=== PATIENT | male | born 1960 | race Caucasian/White ===

== ENCOUNTER 2018-04-17 08:56 | Emergency (ER) | payer OTHER ==
--- NOTE | 2018-04-17 09:16 | EDM.PDOC ---
ED HPI GENERAL MEDICAL PROBLEM - General Chief Complaint: Lower Extremity Injury/Pain Stated Complaint: RT LEG HURTS Time Seen by Provider: 04/17/18 09:14 - History of Present Illness INITIAL COMMENTS - FREE TEXT/NARRATIVE: HISTORY AND PHYSICAL: History of present illness: Patient's 58-year-old white male presents with concern of chronic right leg swelling slightly worse recently he states he said mild chronic edema of his right lower extremity but there is a family history of DVT this prompted visit today to the DVT he denies pain he denies trauma he denies other risk factors for DVT pulmonary M was on or prior episodes. Review of systems: As per history of present illness and below otherwise all systems reviewed and negative. Past medical history: As per history of present illness and as reviewed below otherwise noncontributory. Surgical history: As per history of present illness and as reviewed below otherwise noncontributory. Social history: No reported history of drug or alcohol abuse. Family history: As per history of present illness and as reviewed below otherwise noncontributory. Physical exam: HEENT: Atraumatic, normocephalic, pupils reactive, negative for conjunctival pallor or scleral icterus, mucous membranes moist, throat clear, neck supple, nontender, trachea midline. Lungs: Clear to auscultation, breath sounds equal bilaterally, chest nontender. Heart: S1S2, regular, negative for clicks, rubs, or JVD. Abdomen: Soft, nondistended, nontender. Negative for masses or hepatosplenomegaly. Negative for costovertebral tenderness. Pelvis: Stable nontender. Genitourinary: Deferred. Rectal: Deferred. Extremities: Patient is 1+ edema lower extremity there is no cords pain CMS neurovascular exam is unremarkable Neuro: Awake, alert, oriented. Cranial nerves II through XII unremarkable. Cerebellum unremarkable. Motor and sensory unremarkable throughout. Exam nonfocal. Diagnostics: Venous Doppler right lower extremity Therapeutics: To be determined Impression: #1 peripheral edema right lower extremity chronic/intermittent etiology to be determined Definitive disposition and diagnosis as appropriate pending reevaluation and review of above. right lower leg Pain Score (Numeric/FACES): 4 - Related Data Allergies Allergy/AdvReac Type Severity Reaction Status Date / Time Penicillins Allergy Edema Verified 04/17/18 09:03 Home Meds: Home Meds Fish Oil/Pitts-3 Fatty Acids [Fish Oil] 04/17/18 [History] Past Medical History - Infectious Disease History Infectious Disease History: Reports: Chicken Pox, Hepatitis C - Past Surgical History HEENT Surgical History: Reports: Tonsillectomy GI Surgical History: Reports: Cholecystectomy, Other (See Below) Other GI Surgeries/Procedures: liver biopsy Social & Family History - Family History Family Medical History: Noncontributory - Tobacco Use Smoking Status *Q: Never Smoker - Caffeine Use Caffeine Use: Reports: Energy Drinks - Recreational Drug Use Recreational Drug Use: No Review of Systems - Review of Systems Review Of Systems: ROS reveals no pertinent complaints other than HPI. ED EXAM, GENERAL - Physical Exam Exam: See Below (See dictation) Course - Vital Signs Last Recorded V/S: Last Vital Signs Temp 36.2 C 04/17/18 09:03 Pulse 64 04/17/18 09:03 Resp 18 04/17/18 09:03 BP 149/98 H 04/17/18 09:03 Pulse Ox 96 04/17/18 09:03 Departure - Departure Time of Disposition: 10:46 Disposition: Home, Self-Care 01 Condition: Good Clinical Impression: Peripheral edema - Discharge Information Referrals: PCP,None [Primary Care Provider] - Forms: ED Department Discharge Additional Instructions: The following information is given to patients seen in the emergency department who are being discharged to home. This information is to outline your options for follow-up care. We provide all patients seen in our emergency department with a follow-up referral. The need for follow-up, as well as the timing and circumstances, are variable depending upon the specifics of your emergency department visit. If you don't have a primary care physician on staff, we will provide you with a referral. We always advise you to contact your personal physician following an emergency department visit to inform them of the circumstance of the visit and for follow-up with them and/or the need for any referrals to a consulting specialist. The emergency department will also refer you to a specialist when appropriate. This referral assures that you have the opportunity for followup care with a specialist. All of these measure are taken in an effort to provide you with optimal care, which includes your followup. Under all circumstances we always encourage you to contact your private physician who remains a resource for coordinating your care. When calling for followup care, please make the office aware that this follow-up is from your recent emergency room visit. If for any reason you are refused follow-up, please contact the [facility] emergency department at and asked to speak to the emergency department charge nurse. Follow-up primary medical doctor as needed as discussed return as needed as discussed
--- NOTE | 2018-04-17 09:57 | US ---
ULTRASOUND EXAMINATION OF the right lower extremity WITH DOPPLER HISTORY: Pain FINDINGS: Examination of the right leg was performed from the groin to the calf region. All visualized segment s including common femoral, proximal greater saphenous, superficial femoral, popliteal and calf veins appear patent with good compressibility and augmentation. There is no evidence of deep vein thrombo sis. IMPRESSION: No evidence of a DVT.
--- NOTE | 2018-04-17 09:58 | CR ---
EXAMINATION: Right ankle HISTORY: Pain COMPARISON: None TECHNIQUE: 3 views FINDINGS/IMPRESSION: There is no acute osseous abnormality, dislocation, or fracture. Ankle mortise a nd talar dome appear intact. Mild soft tissue swelling noted overlying the medial malleolus. Otherwis e minimal degenerative changes present.
== END 2018-04-17 10:55 | disposition home or self-care (01) ==
LOC: MW.ED 08:56
DX: R60.0 Localized edema (principal); Z88.0 Allergy status to penicillin
CPT/HCPCS: 73610-26-RT; 73610-RT; 93971-26-RT; 93971-RT; 99284-25

== ENCOUNTER 2018-09-02 13:29 | Emergency (ER) | payer OTHER ==
[2018-09-02] MEDS ORDERED: Sodium Chloride 0.9% 1,000 ML IV ONE (13:47)
[2018-09-02] MEDS ORDERED: Sodium Chloride 0.9% 2.5 ML Syringe FLUSH PRN (13:47)
[2018-09-02] MEDS ORDERED: Sodium Chloride 0.9% 10 ML Syringe FLUSH PRN (13:47)
[2018-09-02] MEDS ORDERED: Ketorolac 30 MG/ML SDV IVPUSH ONE (13:47)
[2018-09-02 14:20] LABS: CHLORIDE,CL 108 mmol/L (98-107); SODIUM,NA 143 mmol/L (136-148)
--- NOTE | 2018-09-02 15:41 | EDM.PDOC ---
ED HPI GENERAL MEDICAL PROBLEM - General Chief Complaint: Flank Pain Stated Complaint: LOWER BACK PAIN Time Seen by Provider: 09/02/18 13:31 Source of Information: Reports: Patient History Limitations: Reports: No Limitations - History of Present Illness INITIAL COMMENTS - FREE TEXT/NARRATIVE: History of present illness: []Patient complains of one hour of sudden sharp left flank pain that is making him sweat. He is nauseated but has not vomited. Patient recently underwent a liver stent placement for hepatic cyst that was optimizing his bile duct in [facility] at the [facility]. Patient does not have any right upper quadrant pain or fevers at this time Review of systems: As per history of present illness and below otherwise all systems reviewed and negative. Past medical history: As per history of present illness and as reviewed below otherwise noncontributory. Surgical history: As per history of present illness and as reviewed below otherwise noncontributory. Social history: No reported history of drug or alcohol abuse. Family history: As per history of present illness and as reviewed below otherwise noncontributory. Physical exam: General: Well developed, well nourished in NAD HEENT: Atraumatic, normocephalic, pupils reactive, negative for conjunctival pallor or scleral icterus, mucous membranes moist, throat clear, neck supple, nontender, trachea midline. Lungs: Clear to auscultation, breath sounds equal bilaterally, chest nontender. Heart: S1S2, regular, negative for clicks, rubs, or JVD. Abdomen: Soft, nondistended, nontender. Negative for masses or hepatosplenomegaly. Negative for costovertebral tenderness. Pelvis: Stable nontender. Genitourinary: Deferred. Rectal: Deferred. Extremities: Atraumatic, negative for cords or calf pain. Neurovascular unremarkable. Neuro: Awake, alert, oriented. Cranial nerves II through XII unremarkable. Cerebellum unremarkable. Motor and sensory unremarkable throughout. Exam nonfocal. Skin:warm and dry Diagnostics: CBC, chemistry, UA, CT abdomen and pelvis showing a 1.3 cm left UPJ stone causing watery hydronephrosis Therapeutics: IV hydration, Toradol. Patient did not want narcotics. ED Course: Improved with pain meds and IV hydration Impression: Left UPJ kidney stone moderate hydronephrosis Prescriptions: Diclofenac, Flomax Plan: Increase fluids take meds as directed return if symptoms worsen or change call your doctors at the [facility] [place] and let them know you were in the emergency room and have workup forwarded. Definitive disposition and diagnosis as appropriate pending reevaluation and review of above. lower left back Pain Score (Numeric/FACES): 4 - Related Data Allergies Allergy/AdvReac Type Severity Reaction Status Date / Time Penicillins Allergy Edema Verified 04/17/18 09:03 Home Meds: Home Meds . [No Known Home Meds] 09/02/18 [History] Past Medical History - Infectious Disease History Infectious Disease History: Reports: Chicken Pox, Hepatitis C - Past Surgical History HEENT Surgical History: Reports: Tonsillectomy GI Surgical History: Reports: Cholecystectomy, Other (See Below) Other GI Surgeries/Procedures: liver biopsy/stent placed Social & Family History - Family History Family Medical History: Noncontributory - Tobacco Use Smoking Status *Q: Never Smoker Second Hand Smoke Exposure: No - Caffeine Use Caffeine Use: Reports: Energy Drinks - Recreational Drug Use Recreational Drug Use: No ED ROS GENERAL - Review of Systems Review Of Systems: ROS reveals no pertinent complaints other than HPI. ED EXAM, GI/ABD - Physical Exam Exam: See Below (The history of present illness) Course - Vital Signs Last Recorded V/S: Last Vital Signs Temp 96.2 F 09/02/18 13:41 Pulse 52 L 09/02/18 13:41 Resp 17 09/02/18 13:41 BP 124/88 09/02/18 13:41 Pulse Ox 96 09/02/18 13:41 - Orders/Labs/Meds Orders: Active Orders 24 hr Category Date Time Status Abdomen Pelvis w wo Cont [CT] Stat Exams 09/02/18 14:24 Taken Sodium Chloride 0.9% [Saline Flush] Med 09/02/18 13:47 Active 10 ml FLUSH ASDIRECTED PRN Sodium Chloride 0.9% [Saline Flush] Med 09/02/18 13:47 Active 2.5 ml FLUSH ASDIRECTED PRN Saline Lock Insert [OM.PC] Stat Oth 09/02/18 13:47 Ordered Medication Orders Sodium Chloride (Saline Flush) 10 ml FLUSH ASDIRECTED PRN PRN Reason: Keep Vein Open Last Admin: 09/02/18 14:03 Dose: 10 ml Sodium Chloride (Saline Flush) 2.5 ml FLUSH ASDIRECTED PRN PRN Reason: Keep Vein Open Last Admin: 09/02/18 14:03 Dose: 2.5 ml Labs: Laboratory Tests 09/02/18 09/02/18 09/02/18 Range/Units 13:55 13:55 15:00 WBC 9.00 (4.0-11.0) K/uL RBC 4.18 L (4.50-5.90) M/uL Hgb 13.7 (13.0-17.0) g/dL Hct 39.3 (38.0-50.0) % MCV 94.0 (80.0-98.0) fL MCH 32.8 H (27.0-32.0) pg MCHC 34.9 (31.0-37.0) g/dL RDW Std Deviation 44.8 (28.0-62.0) fl RDW Coeff of Vasu 13 (11.0-15.0) % Plt Count 210 (150-400) K/uL MPV 10.90 (7.40-12.00) fL Neut % (Auto) 41.1 L (48.0-80.0) % Lymph % (Auto) 46.4 H (16.0-40.0) % [facility] % (Auto) 8.8 (0.0-15.0) % Eos % (Auto) 3.3 (0.0-7.0) % Baso % (Auto) 0.4 (0.0-1.5) % Neut # (Auto) 3.7 (1.4-5.7) K/uL Lymph # (Auto) 4.2 H (0.6-2.4) K/uL [facility] # (Auto) 0.8 (0.0-0.8) K/uL Eos # (Auto) 0.3 (0.0-0.7) K/uL Baso # (Auto) 0.0 (0.0-0.1) K/uL Nucleated RBC % 0.0 /100WBC Nucleated RBCs # 0 K/uL Sodium 143 (136-148) mmol/L Potassium 3.7 (3.5-5.1) mmol/L Chloride 108 H (98-107) mmol/L Carbon Dioxide 26.5 (21.0-32.0) mmol/L BUN 15 (7.0-18.0) mg/dL Creatinine 1.0 (0.8-1.3) mg/dL Est Cr Clr Drug Dosing 83.14 mL/min Estimated GFR (MDRD) > 60.0 ml/min Glucose 132 H (74-106) mg/dL Calcium 8.5 (8.5-10.1) mg/dL Total Bilirubin 1.1 H (0.2-1.0) mg/dL AST 47 H (15-37) IU/L ALT 69 H (14-63) IU/L Alkaline Phosphatase 193 H (46-116) U/L Total Protein 7.0 (6.4-8.2) g/dL Albumin 3.0 L (3.4-5.0) g/dL Globulin 4.0 H (2.0-3.5) g/dL Albumin/Globulin Ratio 0.8 L (1.3-2.8) Urine Color YELLOW Urine Appearance CLEAR Urine pH 6.0 (5.0-8.0) Ur Specific [place] 1.020 (1.001-1.035) Urine Protein NEGATIVE (NEGATIVE) mg/dL Urine Glucose (UA) NEGATIVE (NEGATIVE) mg/dL Urine Ketones NEGATIVE (NEGATIVE) mg/dL Urine Occult Blood LARGE H (NEGATIVE) Urine Nitrite NEGATIVE (NEGATIVE) Urine Bilirubin NEGATIVE (NEGATIVE) Urine Urobilinogen 0.2 (<2.0) EU/dL Ur Leukocyte Esterase NEGATIVE (NEGATIVE) Urine RBC 50-65 (0-2/HPF) Urine WBC 0-3 (0-5/HPF) Ur Epithelial Cells RARE (NONE-FEW) Urine Bacteria RARE (NEGATIVE) Meds: Medications Generic Name Dose Route Start Last Admin Trade Name Freq PRN Reason Stop Dose Admin Sodium Chloride 10 ml 09/02/18 13:47 09/02/18 14:03 Saline Flush FLUSH 10 ml ASDIRECTED PRN Administration Keep Vein Open Sodium Chloride 2.5 ml 09/02/18 13:47 09/02/18 14:03 Saline Flush FLUSH 2.5 ml ASDIRECTED PRN Administration Keep Vein Open Discontinued Medications Generic Name Dose Route Start Last Admin Trade Name Freq PRN Reason Stop Dose Admin Sodium Chloride 1,000 mls @ 999 mls/hr 09/02/18 13:47 09/02/18 14:03 Normal Saline IV 09/02/18 14:47 999 mls/hr .Bolus ONE Administration Ketorolac Tromethamine 30 mg 09/02/18 13:47 09/02/18 14:03 Toradol IVPUSH 09/02/18 13:48 30 mg ONETIME ONE Administration Departure - Departure Time of Disposition: 15:41 Disposition: Home, Self-Care 01 Condition: Good Clinical Impression: Left ureteral stone - Discharge Information *PRESCRIPTION DRUG MONITORING PROGRAM REVIEWED*: No *COPY OF PRESCRIPTION DRUG MONITORING REPORT IN PATIENT BALAJI: No Referrals: PCP,None [Primary Care Provider] - Additional Instructions: The following information is given to patients seen in the emergency department who are being discharged to home. This information is to outline your options for follow-up care. We provide all patients seen in our emergency department with a follow-up referral. The need for follow-up, as well as the timing and circumstances, are variable depending upon the specifics of your emergency department visit. If you don't have a primary care physician on staff, we will provide you with a referral. We always advise you to contact your personal physician following an emergency department visit to inform them of the circumstance of the visit and for follow-up with them and/or the need for any referrals to a consulting specialist. The emergency department will also refer you to a specialist when appropriate. This referral assures that you have the opportunity for follow-up care with a specialist. All of these measure are taken in an effort to provide you with optimal care, which includes your follow-up. Under all circumstances we always encourage you to contact your private physician who remains a resource for coordinating your care. When calling for follow-up care, please make the office aware that this follow-up is from your recent emergency room visit. If for any reason you are refused follow-up, please contact the [facility] Emergency Department at and asked to speak to the emergency department charge nurse. Flomax, diclofenac for pain follow-up with primary care. Let your doctors in [place] no about her ER visit today and have your records forwarded. Follow-up with urology if symptoms continue or worsen. [facility] [address] [place] [id number] [facility] [address] [place] [address] - My Orders Last 24 Hours: My Active Orders 09/02/18 13:47 Sodium Chloride 0.9% [Saline Flush] 10 ml FLUSH ASDIRECTED PRN Sodium Chloride 0.9% [Saline Flush] 2.5 ml FLUSH ASDIRECTED PRN Saline Lock Insert [OM.PC] Stat 09/02/18 14:24 Abdomen Pelvis w wo Cont [CT] Stat - Assessment/Plan Last 24 Hours: My Active Orders 09/02/18 13:47 Sodium Chloride 0.9% [Saline Flush] 10 ml FLUSH ASDIRECTED PRN Sodium Chloride 0.9% [Saline Flush] 2.5 ml FLUSH ASDIRECTED PRN Saline Lock Insert [OM.PC] Stat 09/02/18 14:24 Abdomen Pelvis w wo Cont [CT] Stat
--- NOTE | 2018-09-03 15:43 | CT ---
EXAM DATE: 09/02/18 PATIENT'S AGE: 58 Patient: JOJO YOO Facility: [place], [place] Site . Site : [id number] Study: CT Abdomen/Pelvis [id number] 2:55:37 PM Ordering Physician: Nicolas Segovia Final Report: Abdominal pain status post liver stent placement Noncontrast and contrast enhanced CT abdomen and pelvis coronal sagittal reformat images obtained. Comparison : No comparison studies are available. Findings: Heart size is normal. No pericardial effusion or pleural effusion. Minimal basilar atelectasis. Small hiatal hernia. Mild splenomegaly measuring 14.8 cm. The pancreas, adrenal glands are unremarkable. Common bile duct stent present cholecystectomy. Moderate intra and extrahepatic biliary dilatation more significant in the left hepatic lobe. Tiny focus of probable pneumobilia. Low-density lesions in liver likely reflects cysts. 1.9 cm x 1.6 cm subtly ill-defined hypoattenuated rounded area near the jay jay hepatis on series 301 image 31 could represent possible mass and is indeterminate. Pancreas adrenal glands are unremarkable. Slightly prominent jay jay hepatis portacaval nodes. No abdominal aortic aneurysm. Asymmetric enhancement with delayed nephrogram on the left. There is a 1.3 x 0.9 cm left UPJ stone causing moderate hydronephrosis. Additional nonobstructing stone in the left lower kidney. No hydronephrosis or renal calculi on the right. The urinary bladder is unremarkable. Prostate gland minimally prominent. Fat containing left inguinal hernia. Diverticulosis. Normal appendix. No suspicious bony lesions. Impression : 1. 1.3 x 0.9 centimeter left UPJ stone causing moderate hydronephrosis. Additional nonobstructing left renal calculus. 2. Common bile duct stent appears in place. Intra and extrahepatic biliary ductal dilatation. Vague 1.9 x 1.6 centimeter ill-defined hypo rounded area near the jay jay hepatis is indeterminate. Malignancy/possible cholangiocarcinoma is not excluded. Further evaluation with MRI could be for performed in consideration for GI consultation. Please note that all CT scans at this facility use dose modulation, iterative reconstruction, and/or weight-based dosing when appropriate to reduce radiation dose to as low as reasonably achievable. Dictated by Mary Waldrop MD @ Sep 02 2018 3:00PM (Electronic Signature) Report Signed by Proxy. NATHAN
== END 2018-09-02 15:55 | disposition home or self-care (01) ==
LOC: MW.ED 13:29
DX: N13.2 Hydronephrosis with renal and ureteral calculous obstruction (principal); Z88.0 Allergy status to penicillin
CPT/HCPCS: 36415; 74178; 80053; 81001; 85025; 96361; 96374; 99284; J1885; J7040; 99283